=== PATIENT | male | born 1950 | race Caucasian/White ===

== ENCOUNTER → 2020-06-03 | Outpatient (CLI) | payer MEDICARE, OTHER | LOC: LAB FS 10:09 | PROVIDERS: ATTEND Orthopaedic Surgery | DX: Z20.828 Contact with and (suspected) exposure to other viral communicable diseases (principal) | CPT/HCPCS: 87635 ==

== ENCOUNTER 2020-10-22 09:16 | Emergency (ER) | payer MEDICARE, OTHER ==
[~2020-10-22] VITALS: Ht 182.8 cm; Wt 137.2 kg
[2020-10-22] MEDS ORDERED: CARV3.122 (10:18)
[2020-10-22] MEDS ORDERED: ISOS30TA3 (10:18)
[2020-10-22] MEDS ORDERED: LOSA100T57 (10:18)
[2020-10-22] MEDS ORDERED: SIMV80TA21 (10:18)
[2020-10-22] MEDS ORDERED: HYDR-3922 (10:18)
[2020-10-22] MEDS ORDERED: latanoprost (10:18)
[2020-10-22] MEDS ORDERED: SPIR25TA5 (10:18)
--- NOTE | 2020-10-22 10:18 | ED Cough/URI ---
General Chief Complaint: Respiratory Problems Stated Complaint: SOB Source: patient, spouse History of Present Illness Date Seen by Provider: Oct 22, 2020 Time Seen by Provider: 09:27 Initial Comments 70-year-old male presenting with his to the emergency department with complaints of shortness of breath and fatigue. He was diagnosed with COVID on October 21. His was diagnosed on Saturday and given Z pack and prednisone on 10/20. He states that he has had decreased appetite and decreased taste and smell. He has cough worse in the mornings when he first wakes up. He occasionally brings up some yellow white sputum. He has had low-grade fever. He was feeling rundown and tired overall. He has some mild shortness of breath. The cough is not keeping him up at night. He has not been prescribed any medication for his infection. He denies any nausea, vomiting, diarrhea. Allergies and Home Medications Allergies Coded Allergies: No Allergy Information Available (Unverified , 10/22/20) states a prostate medication, name ? Patient Home Medication List Home Medication List Reviewed: Yes Review of Systems Review of Systems Constitutional: No chills, No dizziness; fever (low grade), malaise EENTM: nose congestion Respiratory: cough; No hemoptysis; short of breath; No stridor, No wheezing Cardiovascular: No chest pain Gastrointestinal: No abdominal pain, No nausea, No vomiting Genitourinary: no symptoms reported Musculoskeletal: other (generalized body aches) Skin: no symptoms reported Psychiatric/Neurological: Denies Headache, Denies Numbness, Denies Paresthesia; Weakness (general weak and fatigued) Past Sesnmns-Pqyhbe-Gqhvdg Hx Past Med/Social Hx: Reviewed Nursing Past Med/Soc Hx Patient Social History Recent Foreign Travel: No Contact w/Someone Who Travel: No Past Medical History Respiratory: No Cardiac: Yes High Cholesterol, Hypertension Neurological: No Gastrointestinal: No Musculoskeletal: No Endocrine: Yes Diabetes, Non-Insulin dep (diet controlled) Physical Exam Vital Signs - First Documented 10/22/20 09:35 Temp 37.4 Pulse 80 Resp 20 B/P (MAP) 148/81 (103) Pulse Ox 95 O2 Delivery Room Air Capillary Refill : Height: '" Weight: lbs. oz. kg; BMI Method: General Appearance: WD/WN, no apparent distress, obese HEENT: PERRL/EOMI, pharynx normal Neck: non-tender, full range of motion, supple, normal inspection Respiratory: chest non-tender, lungs clear, normal breath sounds, no respiratory distress, no accessory muscle use Cardiovascular: normal peripheral pulses, regular rate, rhythm Gastrointestinal: normal bowel sounds, soft, no pulsatile mass Extremities: normal range of motion, non-tender, no pedal edema, normal capillary refill Neurologic/Psychiatric: alert, normal mood/affect, oriented x 3 Skin: normal color, warm/dry Progress/Results/Core Measures Suspected Sepsis SIRS Temperature: Pulse: Respiratory Rate: Blood Pressure / Mean: Results/Orders My Orders Orders - COLLEEN LAM MD Chest 1 View Ap/Pa Only (10/22/20 10:15) Vital Signs/I&O 10/22/20 10/22/20 10/22/20 09:35 10:05 12:25 Temp 37.4 36.6 Pulse 80 73 60 Resp 20 22 22 B/P (MAP) 148/81 (103) 140/76 (97) 134/73 (103) Pulse Ox 95 95 96 O2 Delivery Room Air Room Air Room Air Capillary Refill : Progress Note #1: Progress Note reassured patient that his vitals appears stable and he has good oxygen saturation on room air. With his mild symptoms will obtain a chest x-ray and provided he does not show signs of infiltrate or have worsening vital signs will continue with symptomatic treatment. If he does show an infiltrate and require antibiotics and steroids we can have those on. Will try to avoid steroids if possible since he is diet controlled diabetic. He is not feeling dizzy or lightheaded and not tachycardic to indicate that he would need IV fluids for hydration. Progress Note #2: Progress Note CXR clear of infiltrate or effusion. Treat with symptomatic care and encourage fluids and hydration. Mucinex or Coricidin BP if needed for cough. Humidifier at bedside Diagnostic Imaging Diagonstic Imaging: Xray Plain Films/CT/US/NM/MRI: chest Comments [facility] [place], [place] NAME: TANYA MEYERS [facility] REC#: [id number] PT STATUS: REG ER : 1950 PHYSICIAN: COLLEEN LAM MD ADMIT DATE: 10/22/20/ER FS Draft Date of Exam:10/22/20 CHEST 1 VIEW AP/PA ONLY INDICATION: Shortness breath and cough. Time of exam 10:42 a.m. COMPARISON: No prior studies are available for comparison. FINDINGS: The heart size is normal. The pulmonary vascularity is unremarkable. The lungs are clear. No infiltrate, effusion or pneumothorax is detected. IMPRESSION: No acute cardiopulmonary process is detected. Dictated on workstation # [id number] Dict: 10/22/20 1058 Trans: 10/22/20 1106 [facility] [id number] Interpreted by: MAGDA SMITH MD Electronically signed by: Departure Impression Primary Impression: COVID-19 virus infection Additional Impressions: Fatigue Qualified Codes: R53.83 - Other fatigue Viral syndrome Disposition: HOME, SELF-CARE Condition: Stable Departure-Patient Inst. Decision time for Depature: 12:09 Referrals: LUCIO NUNEZ APRN (PCP) Primary Care Physician [facility] (Family) Primary Care Physician Patient Instructions: Upper Respiratory Infection ED, Coronavirus Disease 2019 (COVID-19) ED, Coronavirus Disease 2019 (COVID-19) Overview Add. Discharge Instructions: stay well hydrated and get plenty of rest. For your cough consider Coricidin BP or Plain Mucinex over the counter if needed. Use a humidifier or vaporizer at the bedside to help with cough and congestion Check with clinic for continued concerns All discharge instructions reviewed with patient and/or family. Voiced understanding. COLLEEN LAM MD Oct 22, 2020 10:17
--- NOTE | 2020-10-22 11:06 | Diagnostic Imaging Report ---
INDICATION: Shortness breath and cough. Time of exam 10:42 a.m. COMPARISON: No prior studies are available for comparison. FINDINGS: The heart size is normal. The pulmonary vascularity is unremarkable. The lungs are clear. No infiltrate, effusion or pneumothorax is detected. IMPRESSION: No acute cardiopulmonary process is detected. Dictated by: Dictated on workstation # [id number]
[2020-10-22 12:25] VITALS: BP 134/73
== END 2020-10-22 12:25 | disposition home or self-care (01) ==
LOC: EDUNIT# 09:16 → ER FS 09:19
DX: U07.1 COVID-19 (principal); R53.83 Other fatigue; E66.9 Obesity, unspecified
CPT/HCPCS: 71045

== ENCOUNTER → 2020-12-28 | Outpatient (CLI) | payer MEDICARE, OTHER ==
[~2020-12-28] MED LIST: CARV3.122; HYDR-3922; ISOS30TA82; LOSA100T57; SIMV80TA21; SPIR25TA5; latanoprost
== END ==
LOC: LAB FS 10:21
PROVIDERS: ATTEND Nurse Practitioner Family
DX: Z01.812 Encounter for preprocedural laboratory examination (principal); Z20.822 Contact with and (suspected) exposure to COVID-19
CPT/HCPCS: 87635

== ENCOUNTER 2021-03-23 13:50 | Outpatient (RCR) | payer MEDICARE, OTHER | END 2021-04-13 | disposition home or self-care (01) | LOC: ONC 13:50 | PROVIDERS: ATTEND Radiology Radiation Oncology | DX: C61 Malignant neoplasm of prostate (principal) | CPT/HCPCS: 77290; 77300; 77301; 77334; 77336; 77338; 77385 ==

== ENCOUNTER 2021-05-18 09:10 | Outpatient (RCR) | payer MEDICARE, OTHER | END 2021-08-16 | disposition home or self-care (01) | LOC: ONC 09:10 | PROVIDERS: ATTEND Radiology Radiation Oncology | DX: C61 Malignant neoplasm of prostate (principal) | CPT/HCPCS: 84153; G0463; 99213 ==

== ENCOUNTER 2021-08-24 10:45 | Outpatient (RCR) | payer MEDICARE, OTHER | END 2021-10-20 | disposition home or self-care (01) | LOC: ONC 10:45 | PROVIDERS: ATTEND Radiology Radiation Oncology | DX: Z51.0 Encounter for antineoplastic radiation therapy (principal); C61 Malignant neoplasm of prostate | CPT/HCPCS: 77336 ==

== ENCOUNTER 2021-11-09 13:44 | Outpatient (RCR) | payer MEDICARE, OTHER | END 2021-11-20 | disposition home or self-care (01) | LOC: ONC 13:44 | PROVIDERS: ATTEND Radiology Radiation Oncology | DX: C61 Malignant neoplasm of prostate (principal) | CPT/HCPCS: 84153; G0463; 99213 ==

== ENCOUNTER 2021-12-20 09:03 | Emergency (ER) | payer MEDICARE, OTHER ==
[~2021-12-20] VITALS: Ht 182 cm; Wt 138.0 kg
--- NOTE | 2021-12-20 09:23 | ED General ---
General Stated Complaint: LT FLANK Source of Information: Patient History of Present Illness Date Seen by Provider: Dec 20, 2021 Time Seen by Provider: 09:07 Initial Comments 71-year-old male presenting with complaints of left flank pain for the last se veral days. He does have history of kidney stones and noticed blood in his urine overnight. When he saw the blood he remembered that he had similar pain with kidney stones in the past. He has some mild nausea when the pain is severe. He denies any fever, chills, diarrhea, vomiting, blood in his stool, trauma to his belly. He has no burning with urination. He has seen urology out of [place] in the past. He does also have a history of prostate cancer. He reports that he had called the clinic to try to follow-up with them but was advised to come to the emergency department. Patient states that he is not currently having pain and was just wanting to be evaluated to see if he did definitely have a stone or not. Timing/Duration: 3-4 Days Severity: Moderate Associated Systoms: No Chest Pain, No Cough, No Diaphoresis, No Fever/Chills, No Headaches, No Loss of Appetite, No Malaise; Nausea/Vomiting (Nausea when the pain is severe but no vomiting); No Rash, No Seizure, No Shortness of Air, No Syncope, No Weakness Allergies and Home Medications Allergies Coded Allergies: No Known Allergies (Verified Allergy, Unknown, 12/20/21) Patient Home Medication List Home Medication List Reviewed: Yes Carvedilol (Carvedilol) 3.125 Mg Tablet, (Reported) Entered as Reported by: CARLA XIE on 10/22/20 1018 Hydralazine HCl (Hydralazine HCl) 10 Mg Tablet, (Reported) Entered as Reported by: CARLA XIE on 10/22/20 1018 Hydrocodone/Acetaminophen (Hydrocodone-Acetamin 5-325 mg) 1 Each Tablet, 1 TAB PO Q6H PRN for PAIN-SEVERE (8-10) Prescribed by: COLLEEN LAM on 12/20/21 1025 Isosorbide Mononitrate (Isosorbide Mononitrate ER) 30 Mg Tab.er.24h, (Reported) Entered as Reported by: CARLA XIE on 10/22/20 1018 Losartan Potassium (Losartan Potassium) 100 Mg Tablet, (Reported) Entered as Reported by: CARLA XIE on 10/22/20 1018 Ondansetron (Ondansetron Odt) 4 Mg Tab.rapdis, 4 MG PO Q6H PRN for NAUSEA/VOMITING Prescribed by: COLLEEN LAM on 12/20/21 1024 Simvastatin (Simvastatin) 80 Mg Tablet, (Reported) Entered as Reported by: CARLA XIE on 10/22/20 1018 Spironolactone (Spironolactone) 25 Mg Tablet, (Reported) Entered as Reported by: CARLA XIE on 10/22/20 1018 [latanoprost] , (Reported) Entered as Reported by: CARLA XIE on 10/22/20 1018 Review of Systems Review of Systems Constitutional: No chills, No fever EENTM: no symptoms reported Respiratory: no symptoms reported Cardiovascular: no symptoms reported Gastrointestinal: see HPI Genitourinary: see HPI Musculoskeletal: no symptoms reported Skin: no symptoms reported Psychiatric/Neurological: No Symptoms Reported Past Cmeevsu-Oxcfsr-Prunkp Hx Seasonal Allergies Seasonal Allergies: No Past Medical History Surgery/Hospitalization HX: Kidney stones Surgeries: Yes (L TKR 2019, R TKR 2017, umbilical hernia) Joint Replacement Respiratory: No Cardiac: Yes High Cholesterol, Hypertension Neurological: No Genitourinary: Yes Prostate Problems Gastrointestinal: No Musculoskeletal: No Arthritis Endocrine: Yes Diabetes, Non-Insulin dep HEENT: Yes ("on eye drops") Glaucoma Cancer: Yes Prostate Psychosocial: No Integumentary: No Blood Disorders: No Physical Exam Vital Signs Vital Signs - First Documented 12/20/21 10:51 Temp 36.2 Pulse 70 Resp 18 B/P (MAP) 187/93 (124) Pulse Ox 95 O2 Delivery Room Air Capillary Refill : Height, Weight, BMI Height: '" Weight: lbs. oz. kg; 41.00 BMI Method: General Appearance: No Apparent Distress, WD/WN HEENT: PERRL/EOMI, Pharynx Normal Neck: Full Range of Motion, Supple Respiratory: Chest Non Tender, Lungs Clear, No Respiratory Distress Cardiovascular: Regular Rate, Rhythm, Normal Peripheral Pulses Gastrointestinal: Normal Bowel Sounds, No Pulsatile Mass, Non Tender, Soft Rectal: Deferred Back: No CVA Tenderness Extremity: Normal Capillary Refill, Normal Inspection, Pedal Edema (Trace to 1+ pedal edema bilateral lower extremity) Neurologic/Psychiatric: Alert, Oriented x3 Skin: Normal Color, Warm/Dry Progress/Results/Core Measures Suspected Sepsis SIRS Temperature: Pulse: Respiratory Rate: Laboratory Tests 12/20/21 09:28: White Blood Count 7.6 Blood Pressure / Mean: Laboratory Tests 12/20/21 09:28: Creatinine 1.09, Platelet Count 160, Total Bilirubin 0.8 Results/Orders Lab Results Laboratory Tests Test 12/20/21 09:08 12/20/21 09:28 Range/Units Urine Color YELLOW Urine Clarity CLEAR Urine pH 6.5 5-9 Urine Specific [place] 1.020 1.016-1.022 Urine Protein NEGATIVE NEGATIVE Urine Glucose (UA) NEGATIVE NEGATIVE Urine Ketones NEGATIVE NEGATIVE Urine Nitrite NEGATIVE NEGATIVE Urine Bilirubin NEGATIVE NEGATIVE Urine Urobilinogen 0.2 < = 1.0 MG/DL Urine Leukocyte Esterase NEGATIVE NEGATIVE Urine RBC (Auto) 3+ H NEGATIVE Urine RBC 2-5 H /HPF Urine WBC 0-2 /HPF Urine Squamous Epithelial Cells RARE /HPF Urine Crystals NONE /LPF Urine Bacteria NEGATIVE /HPF Urine Casts NONE /LPF Urine Mucus NEGATIVE /LPF Urine Culture Indicated NO White Blood Count 7.6 4.3-11.0 10^3/uL Red Blood Count 4.63 4.30-5.52 10^6/uL Hemoglobin 14.3 13.3-17.7 g/dL Hematocrit 43 40-54 % Mean Corpuscular Volume 92 80-99 fL Mean Corpuscular Hemoglobin 31 25-34 pg Mean Corpuscular Hemoglobin Concent 34 32-36 g/dL Red Cell Distribution Width 13.1 10.0-14.5 % Platelet Count 160 130-400 10^3/uL Mean Platelet Volume 9.2 9.0-12.2 fL Immature Granulocyte % (Auto) 0 % Neutrophils (%) (Auto) 71 42-75 % Lymphocytes (%) (Auto) 12 12-44 % Monocytes (%) (Auto) 12 0-12 % Eosinophils (%) (Auto) 5 0-10 % Basophils (%) (Auto) 0 0-10 % Neutrophils # (Auto) 5.4 1.8-7.8 10^3/uL Lymphocytes # (Auto) 0.9 L 1.0-4.0 10^3/uL Monocytes # (Auto) 0.9 0.0-1.0 10^3/uL Eosinophils # (Auto) 0.4 H 0.0-0.3 10^3/uL Basophils # (Auto) 0.0 0.0-0.1 10^3/uL Immature Granulocyte # (Auto) 0.0 0.0-0.1 10^3/uL Sodium Level 138 135-145 MMOL/L Potassium Level 4.2 3.6-5.0 MMOL/L Chloride Level 101 98-107 MMOL/L Carbon Dioxide Level 27 21-32 MMOL/L Anion Gap 10 5-14 MMOL/L Blood Urea Nitrogen 16 7-18 MG/DL Creatinine 1.09 0.60-1.30 MG/DL Estimat Glomerular Filtration Rate 73 BUN/Creatinine Ratio 15 Glucose Level 145 H 70-105 MG/DL Calcium Level 8.9 8.5-10.1 MG/DL Corrected Calcium 8.9 8.5-10.1 MG/DL Total Bilirubin 0.8 0.1-1.0 MG/DL Aspartate Amino Transf (AST/SGOT) 17 5-34 U/L Alanine Aminotransferase (ALT/SGPT) 13 0-55 U/L Alkaline Phosphatase 112 40-136 U/L Total Protein 7.0 6.4-8.2 GM/DL Albumin 4.0 3.2-4.5 GM/DL Lipase 19 8-78 U/L My Orders Orders - COLLEEN LAM MD Comprehensive Metabolic Panel (12/20/21 09:13) Lipase (12/20/21 09:13) Ua Culture If Indicated (12/20/21 09:13) Ed Iv/Invasive Line Start (12/20/21 09:13) Cbc With Automated Diff (12/20/21 09:13) Ct Abd/Pelvis Wo(Kidney Stone) (12/20/21 09:21) Strain Urine (12/20/21 10:25) Vital Signs/I&O 12/20/21 12/20/21 12/20/21 10:51 10:56 10:58 Temp 36.2 36.2 Pulse 70 70 82 Resp 18 18 16 B/P (MAP) 187/93 (124) 187/93 135/70 Pulse Ox 95 95 82 O2 Delivery Room Air Room Air Room Air Capillary Refill : Progress Note #1: Progress Note Send labs as well as urinalysis. Ordered CT scan of the abdomen pelvis without contrast to evaluate for kidney stone. Patient refused medicine for pain at this point since he reports he is not having pain currently. Progress Note #2: Progress Note Labs appear stable without acute significant normality to account for his symptoms. His CT scan did show a 5 mm kidney stone on the left in the distal ureter. He did not appear to have UTI on his urinalysis. Counseled on results and findings. Plan follow-up with primary and/or urology if needed. Prescribed a few hydrocodone for severe pain. Diagnostic Imaging Diagonstic Imaging: CT Plain Films/CT/US/NM/MRI: abdomen, pelvis Comments NAME: TANYA MEYERS [facility] REC#: [id number] PT STATUS: REG ER : 1950 PHYSICIAN: COLLEEN LAM MD ADMIT DATE: 12/20/21/ER FS Draft Date of Exam:12/20/21 CT ABD/PELVIS WO(KIDNEY STONE) PROCEDURE: CT urinary tract, rule out kidney stone. TECHNIQUE: Multiple contiguous axial images were obtained through the abdomen and pelvis without the use of intravenous contrast. Auto Exposure Controls were utilized during the CT exam to meet ALARA standards for radiation dose reduction. INDICATION: Left-sided flank pain. Hematuria. COMPARISON: None. FINDINGS: The heart is unremarkable. The lung bases are clear. Obstructing calculus is seen in the distal left ureter measuring 0.5 cm. There is mild to moderate left-sided hydroureteronephrosis. Additional nonobstructing calculi are seen bilaterally measuring up to 1.1 cm on the left and 0.6 cm on the right. Bilateral prominent cortical cysts are seen in the kidneys. The largest in the left kidney measures 10.1 x 8.6 cm and the largest on the right measures 5.7 x 5.2 cm. The urinary bladder is nondistended. The liver, spleen, pancreas, and adrenal glands have a normal appearance. There is no pathologically enlarged mesenteric or retroperitoneal adenopathy. The bowel loops are nondilated. The appendix is visualized in the right lower quadrant and has a normal appearance. Diverticuli are seen in the descending sigmoid colon. There is no free fluid or free air. No acute osseous abnormalities. There is calcified aortic and iliac atherosclerotic plaque without aneurysm. There is no free air, loculated collection, or adenopathy in the pelvis. IMPRESSION: 1. Obstructing calculus in the distal left ureter measuring 0.5 cm with mild to moderate left-sided hydroureteronephrosis. 2. Additional nonobstructing calculi are seen bilaterally. Dictated on workstation # [id number] Dict: 12/20/21 0956 Trans: 12/20/21 1007 [facility]B [id number] Interpreted by: JAROD KATZ DO Electronically signed by: Reviewed: Reviewed by Me Departure Impression Primary Impression: Kidney stone on left side Additional Impressions: Calculus of distal left ureter Renal colic on left side Disposition: HOME, SELF-CARE Condition: Stable Departure-Patient Inst. Decision time for Depature: 10:25 Referrals: LUCIO NUNEZ APRN (PCP) Primary Care Physician [facility] (Family) Primary Care Physician Patient Instructions: Flank Pain ED, Kidney Stone, Adult ED, Kidney Stone Diet, How to Strain Your Urine Add. Discharge Instructions: Stay well-hydrated and drink plenty of water. Strain your urine to see when you pass the kidney stone. Use the pain medicine for severe pain. If you have uncontrolled pain, uncontrolled vomiting, fever over 101 Fahrenheit then seek medical care or return for further evaluation If your symptoms are not improved or are worsening over the next 5 to 10 days then follow-up with urology as they may need to help remove the kidney stone. Scripts Ondansetron (Ondansetron Odt) 4 Mg Tab.rapdis 4 MG PO Q6H PRN for NAUSEA/VOMITING for 3 Days, #12 TAB 0 Refills Prov: COLLEEN LAM MD 12/20/21 Hydrocodone/Acetaminophen (Hydrocodone-Acetamin 5-325 mg) 1 Each Tablet 1 TAB PO Q6H PRN for PAIN-SEVERE (8-10) for 5 Days, #20 TAB 0 Refills Prov: COLLEEN LAM MD 12/20/21 Work/School Note: Work Release Form Date Seen in the Emergency Department: Dec 20, 2021 Return to Work: Dec 20, 2021 Restrictions: No Restrictions COLLEEN LAM MD Dec 20, 2021 09:23
[2021-12-20 09:30] LABS: BILIRUBIN,URINE NEGATIVE (NEGATIVE); CLARITY,URINE CLEAR; COLOR,URINE YELLOW; GLUCOSE, URINE (UA) NEGATIVE (NEGATIVE); KETONES,URINE NEGATIVE (NEGATIVE); LEUKOCYTE ESTERASE ,URINE NEGATIVE (NEGATIVE); NITRITE,URINE NEGATIVE (NEGATIVE); PH,URINE 6.5 (5-9); PROTEIN,URINE NEGATIVE (NEGATIVE)
[2021-12-20 09:36] LABS: BASOPHILS % (AUTO) 0 % (0-10); EOSINOPHILS # (AUTO) 0.4 10^3/uL (0.0-0.3); EOSINOPHILS % (AUTO) 5 % (0-10); HEMATOCRIT 43 % (40-54); HEMOGLOBIN 14.3 g/dL (13.3-17.7); LYMPHOCYTES # (AUTO) 0.9 10^3/uL (1.0-4.0); LYMPHOCYTES % (AUTO) 12 % (12-44); MEAN CORPUSCULAR HEMOGLOBIN 31 pg (25-34); MEAN CORPUSCULAR HGB CONC 34 g/dL (32-36); MEAN CORPUSCULAR VOLUME 92 fL (80-99); MEAN PLATELET VOLUME 9.2 fL (9.0-12.2); MONOCYTES # (AUTO) 0.9 10^3/uL (0.0-1.0); MONOCYTES % (AUTO) 12 % (0-12); NEUTROPHILS # (AUTO) 5.4 10^3/uL (1.8-7.8); NEUTROPHILS % (AUTO) 71 % (42-75); PLATELET COUNT 160 10^3/uL (130-400); WHITE BLOOD COUNT 7.6 10^3/uL (4.3-11.0)
[2021-12-20 09:48] LABS: BACTERIA,URINE NEGATIVE /HPF; SQUAMOUS EPITHELIAL CELL,UR RARE /HPF; WBC,URINE 0-2 /HPF
--- NOTE | 2021-12-20 10:08 | Diagnostic Imaging Report ---
PROCEDURE: CT urinary tract, rule out kidney stone. TECHNIQUE: Multiple contiguous axial images were obtained through the abdomen and pelvis without the use of intravenous contrast. Auto Exposure Controls were utilized during the CT exam to meet ALARA standards for radiation dose reduction. INDICATION: Left-sided flank pain. Hematuria. COMPARISON: None. FINDINGS: The heart is unremarkable. The lung bases are clear. Obstructing calculus is seen in the distal left ureter measuring 0.5 cm. There is mild to moderate left-sided hydroureteronephrosis. Additional nonobstructing calculi are seen bilaterally measuring up to 1.1 cm on the left and 0.6 cm on the right. Bilateral prominent cortical cysts are seen in the kidneys. The largest in the left kidney measures 10.1 x 8.6 cm and the largest on the right measures 5.7 x 5.2 cm. The urinary bladder is nondistended. The liver, spleen, pancreas, and adrenal glands have a normal appearance. There is no pathologically enlarged mesenteric or retroperitoneal adenopathy. The bowel loops are nondilated. The appendix is visualized in the right lower quadrant and has a normal appearance. Diverticuli are seen in the descending sigmoid colon. There is no free fluid or free air. No acute osseous abnormalities. There is calcified aortic and iliac atherosclerotic plaque without aneurysm. There is no free air, loculated collection, or adenopathy in the pelvis. IMPRESSION: 1. Obstructing calculus in the distal left ureter measuring 0.5 cm with mild to moderate left-sided hydroureteronephrosis. 2. Additional nonobstructing calculi are seen bilaterally. Dictated by: Dictated on workstation # [id number]
[2021-12-20 10:22] LABS: BILIRUBIN,TOTAL 0.8 MG/DL (0.1-1.0); CALCIUM 8.9 MG/DL (8.5-10.1); CREATININE SERUM 1.09 MG/DL (0.60-1.30); POTASSIUM 4.2 MMOL/L (3.6-5.0)
[2021-12-20] MEDS ORDERED: ONDA4TAB11 PO (10:24)
[2021-12-20] MEDS ORDERED: ACHD5005 PO (10:24)
[2021-12-20 10:58] VITALS: BP 135/70
== END 2021-12-20 10:45 | disposition home or self-care (01) ==
LOC: EDUNIT# 09:03 → ER FS 09:05
DX: N13.2 Hydronephrosis with renal and ureteral calculous obstruction (principal)
CPT/HCPCS: 36415; 74176; 80053; 81000; 83690; 85025

== ENCOUNTER 2021-12-25 14:56 | Outpatient (CLI) | payer MEDICARE, OTHER ==
[~2021-12-25] VITALS: Ht 182.9 cm; Wt 138.6 kg
[~2021-12-25 14:56] MED LIST changes: -ASPI-999 PO; -FURO40TA4 PO; -KETO10TA PO; -NITR-65 PO; -PHEN-640 PO; -TMSL.4C PO
[2021-12-25] MEDS ORDERED: FURO40TA4 PO (16:20)
[2021-12-25] MEDS ORDERED: ASPI-999 PO (16:20)
[2021-12-26] MEDS ORDERED: KETO10TA PO (13:29)
[2021-12-26] MEDS ORDERED: PHEN-640 PO (13:29)
[2021-12-26] MEDS ORDERED: TMSL.4C PO (13:29)
[2021-12-26] MEDS ORDERED: NITR-65 PO (13:29)
== END 2021-12-25 16:33 | disposition home or self-care (01) ==
LOC: PREOP 14:56
PROVIDERS: ATTEND Urology
DX: Z01.818 Encounter for other preprocedural examination (principal)

== ENCOUNTER → 2021-12-25 | Outpatient (CLI) | payer MEDICARE, OTHER ==
[~2021-12-25] MED LIST changes: +ACHD5005 PO; +ASPI-999 PO; +FURO40TA4 PO; +KETO10TA PO; +NITR-65 PO; +ONDA4TAB11 PO; +PHEN-640 PO; +TMSL.4C PO
--- NOTE | 2021-12-25 14:15 | Diagnostic Imaging Report ---
INDICATION: Nephrolithiasis KUB 1:45 PM There is 6 mm calculus projecting over the inferior pole of the right kidney. There is a 13 mm stone at the left ureteropelvic junction. IMPRESSION: Bilateral nephrolithiasis Dictated by: Dictated on workstation # [id number]
== END ==
LOC: RAD 13:30
PROVIDERS: ATTEND Urology
DX: N20.2 Calculus of kidney with calculus of ureter (principal)
CPT/HCPCS: 74018

== ENCOUNTER 2021-12-26 07:47 | Day surgery (SDC) | payer MEDICARE, OTHER ==
[2021-12-26] VITALS (10 sets, daily range): BP systolic 140–190; BP diastolic 89–108
[~2021-12-26] VITALS: Ht 182.9 cm; Wt 138.6 kg
[~2021-12-26 07:47] MED LIST changes: +ASPI-999 PO; +FURO40TA4 PO
--- NOTE | 2021-12-26 08:18 | Progress Note-Pre Operative ---
Pre-Operative Progress Note H&P Reviewed The H&P was reviewed, patient examined and no changes noted. Date Seen by Provider: Dec 26, 2021 Time Seen by Provider: 08:18 Date H&P Reviewed: Dec 26, 2021 Time H&P Reviewed: 08:18 Pre-Operative Diagnosis: LT DISTAL URETERAL AND BILATERAL RENAL STONES BRETT REED MD Dec 26, 2021 08:18
--- NOTE | 2021-12-26 08:19 | Progress Note-Post Operative ---
Post-Operative Progess Note Surgeon (s)/Coil Maker (s) Surgeon BRETT REED MD Coil Maker: NONE Pre-Operative Diagnosis LT DISTAL URETERAL AND BILATERAL RENAL STONES Post-Operative Diagnosis SAME Procedure & Operative Findings Date of Procedure 12/26/21 Procedure Performed/Findings CYSTOSCOPY, ATTEMPTED LT URETEROSCOPY, AND LT ESWL Anesthesia Type GENERAL Estimated Blood Loss Estimated blood loss (mL): NONE Specimens/Packing Specimens Removed NONE Packing: NONE BRETT REED MD Dec 26, 2021 08:19
--- NOTE | 2021-12-26 08:20 | Discharge Inst-Urology ---
Discharge Inst-Urology Reconcile Patient Problems Problems Reviewed?: Yes Final Diagnosis LT DISTAL URETERAL AND BILATERAL RENAL STONES Patient Instructions/Follow Up Plan/Assessment/Instructions Please make appointment to been seen in office Monday 01/08, KUB prior to it. KUB on way home Post ESWL instructions Stay off ASA Increase oral fluids for 48 hours and then as needed. Diet and Activity as tolerated. If questions or concerns contact your physician Or seek help at emergency department. BRETT REED MD Dec 26, 2021 08:20
[2021-12-26] MEDS ORDERED: cefTRIAXone 1 GM PRE-MIX 50 ML IV ONE (08:45)
--- NOTE | 2021-12-26 08:59 | Diagnostic Imaging Report ---
CLINICAL INDICATION: Preop left ESWL. EXAM: X-ray of the abdomen supine views. COMPARISON: X-ray of the abdomen dated 12/25/2021. CT scan of the abdomen and pelvis without contrast dated 12/20/2021. FINDINGS: Again noted 7 mm stone overlying the inferior right renal shadow region and 13 mm stone overlying the left abdominal region suspected to represent a stone overlying the left renal shadow. There is a slightly obscured roughly 5 mm calcification in the left low pelvis region which may represent a stone in the distal left ureter seen on comparison CT scan of the abdomen and pelvis. Prostate treatment metallic objects are noted overlying the low pelvis region. There is no intestinal obstruction. There are degenerative spurs involving the spine. IMPRESSION: Bilateral renal stones and likely stone in distal left ureter, as described above. Dictated by: Dictated on workstation # [id number]
[2021-12-26] MEDS: LACTATED RINGERS 1,000 ML IV PRN ×2 (09:29→12:02)
[2021-12-26] MEDS ORDERED: fentaNYL INJ 100 MCG/2 ML AMP ONE (10:49)
[2021-12-26] MEDS ORDERED: LIDOCAINE PF 2% 5 ML (XYLOCAINE) VIAL ONE (11:45)
[2021-12-26] MEDS ORDERED: proPOfol 200 MG/20 ML (DIPRIVAN) VIAL IV ONE (11:45)
[2021-12-26] MEDS ORDERED: SEVOFLURANE (ULTANE) 15 ML INHAL SOLN ONE (11:45)
[2021-12-26] MEDS ORDERED: ONDANSETRON 4 MG/2 ML (SDV) Z0FRAN ONE (11:45)
[2021-12-26] MEDS ORDERED: KETOROLAC 30 MG/ML VIAL ONE (11:52)
[2021-12-26] MEDS ORDERED: FUROSEMIDE 40 MG/4 ML INJ (LASIX) ONE (11:52)
[2021-12-26] MEDS ORDERED: PHENYLEPHRINE 100 MCG/ML 10 ML (ANESTHESIA) SYR ONE (11:55)
[2021-12-26] MEDS ORDERED: HYDROmorphone 2 MG/ML VIAL (DILAUDID) IV ONE (12:15)
[2021-12-26] MEDS ORDERED: ONDANSETRON 4 MG/2 ML (SDV) Z0FRAN IVP PRN (12:15)
[2021-12-26] MEDS ORDERED: PHEN-640 PO ×2 (13:29)
[2021-12-26] MEDS ORDERED: NITR-65 PO ×2 (13:29)
[2021-12-26] MEDS ORDERED: KETO10TA PO ×2 (13:29)
[2021-12-26] MEDS ORDERED: TMSL.4C PO ×2 (13:29)
[2021-12-26] MEDS ORDERED: PHENAZOPYRIDINE 100 MG (PYRIDIUM) TABLET PO NR (13:45)
--- NOTE | 2021-12-26 13:55 | Anesthesia-General Post-Op ---
General Patient Condition Mental Status/LOC: Same as Preop Cardiovascular: Satisfactory Nausea/Vomiting: Absent Respiratory: Satisfactory Pain: Controlled Complications: Absent Post Op Complications Complications None Follow Up Care/Instructions Patient Instructions None needed. Anesthesia/Patient Condition Patient Condition Patient is doing well, no complaints, stable vital signs, no apparent adverse anesthesia problems. No complications reported per nursing. D/C home per [facility] Criteria: Yes MAYNOR CARLIN CRNA Dec 26, 2021 13:55
--- NOTE | 2021-12-26 15:15 | Diagnostic Imaging Report ---
INDICATION: Status post ESWL. TIME OF EXAM: 2:59 PM CORRELATION is made with prior radiograph earlier the same day. Calcific densities previously described overlying the lower pole renal shadows bilaterally are again noted. There are several small calcific densities in the left hemipelvis which could be in the distribution of the distal left ureter. Bowel gas pattern is unremarkable. There is no free air. IMPRESSION: Bilateral urinary tract calculi, as described. Dictated by: Dictated on workstation # [id number]
--- NOTE | 2021-12-26 17:37 | OPERATIVE REPORT ---
DATE OF SERVICE: 12/26/2021 PREOPERATIVE DIAGNOSIS: Left distal ureteral and bilateral renal stones. POSTOPERATIVE DIAGNOSIS: Left distal ureteral and bilateral renal stones. OPERATIONS PERFORMED: Cystoscopy, attempted left ureteroscopy and left ESWL. SURGEON: Yousuf Reed MD. ANESTHESIA: General. COMPLICATIONS: None. DESCRIPTION OF PROCEDURE: Under satisfactory general anesthesia, the patient in lithotomy position, genitalia were prepped and draped in the usual sterile fashion. Cystoscope was introduced under vision. The anterior urethra was normal. The prostate showed enlargement with bladder neck obstruction, trabeculation with ureteric orifices displaced upward and laterally. I could not satisfactorily dilated the left ureteral orifice to pass the semirigid ureteroscope, so I terminated the procedure, emptied the bladder, moved the patient to the ESWL table supine. The left distal ureteral stone was localized. Shocks were delivered at a kV of 6, 2500 shocks completely fragmented the stone that was hardly visualized. The patient received 40 mg of Lasix and 30 mg of Toradol IV at the end of the procedure. He tolerated the procedure and anesthesia well and was sent to recovery room in a stable condition. Job ID: [id number] DocumentID: [id number] Dictated Date: 12/26/2021 12:01:40 Radio Station Engineer Date: 12/26/2021 17:37:20 Dictated By: YOUSUF REED MD
== END 2021-12-26 15:05 | disposition home or self-care (01) ==
LOC: SDC 07:47
PROVIDERS: ATTEND Urology
DX: N20.2 Calculus of kidney with calculus of ureter (principal); N40.0 Benign prostatic hyperplasia without lower urinary tract symptoms; N32.0 Bladder-neck obstruction; N32.89 Other specified disorders of bladder; E66.01 Morbid (severe) obesity due to excess calories; R03.0 Elevated blood-pressure reading, without diagnosis of hypertension; I25.10 Atherosclerotic heart disease of native coronary artery without angina pectoris; Z79.899 Other long term (current) drug therapy; Z87.891 Personal history of nicotine dependence; Z68.41 Body mass index [BMI] 40.0-44.9, adult
CPT/HCPCS: 74018; 76000; 82947; 87081

== ENCOUNTER → 2022-01-08 | Outpatient (CLI) | payer MEDICARE, OTHER ==
[~2022-01-08] MED LIST changes: +KETO10TA PO; +NITR-65 PO; +PHEN-640 PO; +TMSL.4C PO
--- NOTE | 2022-01-08 18:38 | Diagnostic Imaging Report ---
ABDOMEN/KUB 1VIEW INDICATION: Ureteral stone. COMPARISON: 12/26/2021. TECHNIQUE: AP view of the abdomen. FINDINGS: No change in the position of the 12 mm stone in the left kidney and the 6 mm stone in the lower pole of the right kidney. Previously noted densities in the lower left hemipelvis have resolved. Nonobstructive bowel gas pattern. IMPRESSION: 1. Resolution of the left hemipelvis calcifications which may have been in the distal left ureter. 2. Unchanged bilateral renal calculi. Dictated by: Dictated on workstation # [id number]
== END ==
LOC: RAD 14:22
PROVIDERS: ATTEND Urology
DX: N20.0 Calculus of kidney (principal)
CPT/HCPCS: 74018

== ENCOUNTER 2022-04-27 12:44 | Outpatient (RCR) | payer MEDICARE, OTHER | END 2022-05-20 | disposition home or self-care (01) | LOC: ONC 12:44 | PROVIDERS: ATTEND Radiology Radiation Oncology | DX: C61 Malignant neoplasm of prostate (principal) | CPT/HCPCS: 36415; 84153 ==

== ENCOUNTER 2022-04-28 09:03 | Emergency (ER) | payer MEDICARE, OTHER ==
[~2022-04-28] VITALS: Ht 182.9 cm; Wt 136.1 kg
[2022-04-28 09:14] VITALS: BP 143/74
--- NOTE | 2022-04-28 09:39 | ED Cough/URI ---
General Chief Complaint: Fever-Adult/Adol Stated Complaint: FEVER,SORE THROAT, COUGH Nursing Triage Note: Patient reports fever, sore throat, and cough since yesterday. Source: patient History of Present Illness Date Seen by Provider: Apr 28, 2022 Time Seen by Provider: 09:09 Initial Comments 71-year-old male presenting with complaints of cough and sore throat that started yesterday. Last night he had fever up to 101 Fahrenheit. He continued to have congestion and cough this morning so he came to be evaluated for possible COVID infection. He denies any known ill contacts. He has not currently running fever and does not have shortness of breath, nausea, vomiting, abdominal pain. He has some mild nasal congestion and drainage with some erythema to his throat but no exudate. Timing/Duration: yesterday Severity/Quality: mild, dry cough Prior Episodes/Possible Cause: no prior episodes Modifying Factors: Worse With Coughing Associated Symptoms: cough, fever/chills (101F last night), nasal congestion, nasal drainage, sore throat Allergies and Home Medications Allergies Coded Allergies: No Known Allergies (Verified Allergy, Unknown, 12/25/21) Patient Home Medication List Home Medication List Reviewed: Yes Carvedilol (Carvedilol) 3.125 Mg Tablet, (Reported) Entered as Reported by: CARLA XIE on 10/22/20 1018 Furosemide (Furosemide) 40 Mg Tablet, 40 MG PO DAILY, (Reported) Entered as Reported by: JOHANNE DOWNS on 12/25/21 1620 Hydralazine HCl (Hydralazine HCl) 10 Mg Tablet, (Reported) Entered as Reported by: CARLA XIE on 10/22/20 1018 Hydrocodone/Acetaminophen (Hydrocodone-Acetamin 5-325 mg) 1 Each Tablet, 1 TAB PO Q6H PRN for PAIN-SEVERE (8-10) Prescribed by: COLLEEN LAM on 12/20/21 1025 Isosorbide Mononitrate (Isosorbide Mononitrate ER) 30 Mg Tab.er.24h, (Reported) Entered as Reported by: CARLA XIE on 10/22/20 1018 Ketorolac Tromethamine (Ketorolac Tromethamine) 10 Mg Tablet, 10 MG PO Q6H Prescribed by: SUNSHINE SHARP on 12/26/21 1329 Losartan Potassium (Losartan Potassium) 100 Mg Tablet, (Reported) Entered as Reported by: CARLA XIE on 10/22/20 1018 Nitrofurantoin Monohyd/M-Cryst (Macrobid 100 mg Capsule) 100 Mg Capsule, 1 TAB PO BID WITH MEALS Prescribed by: SUNSHINE SHARP on 12/26/21 1329 Ondansetron (Ondansetron Odt) 4 Mg Tab.rapdis, 4 MG PO Q6H PRN for NAUSEA/VOMITING Prescribed by: COLLEEN LAM on 12/20/21 1024 Phenazopyridine HCl (Pyridium) 200 Mg Tablet, 1 TAB PO TID Prescribed by: SUNSHINE SHARP on 12/26/21 1329 Simvastatin (Simvastatin) 80 Mg Tablet, (Reported) Entered as Reported by: CARAL XIE on 10/22/20 1018 Spironolactone (Spironolactone) 25 Mg Tablet, (Reported) Entered as Reported by: CARLA XIE on 10/22/20 1018 Tamsulosin HCl (Flomax) 0.4 Mg Cap, 0.4 MG PO DAILY Prescribed by: SUNSHINE SHARP on 12/26/21 1329 [latanoprost] , (Reported) Entered as Reported by: CARLA XIE on 10/22/20 1018 Review of Systems Review of Systems Constitutional: see HPI; No chills; fever EENTM: nose congestion, throat pain; No ear discharge, No hearing loss, No ear pain, No blurred vision Respiratory: cough; No phlegm, No stridor, No wheezing Cardiovascular: no symptoms reported Gastrointestinal: no symptoms reported Genitourinary: no symptoms reported Musculoskeletal: no symptoms reported Skin: no symptoms reported Psychiatric/Neurological: No Symptoms Reported Hematologic/Lymphatic: No Symptoms Reported Past Qhgejgg-Kepxoy-Wpfksl Hx Patient Social History Tobacco Use?: No Substance use?: No Alcohol Use?: No Pt feels they are or have been: No Immunizations Up To Date First/Initial COVID19 Vaccinat: 01/27/2021 Second COVID19 Vaccination Alan: 02/2021 Third COVID19 Vaccination Date: 08/18/21 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: Be Seasonal Allergies Seasonal Allergies: No Past Medical History Surgery/Hospitalization HX: DM,HTN Surgeries: Yes (L TKR 2019, R TKR 2017, umbilical hernia) Joint Replacement Respiratory: No Cardiac: Yes High Cholesterol, Hypertension Neurological: No Genitourinary: Yes Prostate Problems, Kidney Stones Gastrointestinal: No Musculoskeletal: No Arthritis Endocrine: Yes (DIET CONTROLLED) Diabetes, Non-Insulin dep HEENT: Yes ("on eye drops") Glaucoma Cancer: Yes Prostate What Type of Treatment Did You: Radiation Psychosocial: No Integumentary: No Blood Disorders: No Physical Exam Vital Signs - First Documented 04/28/22 09:14 Temp 36.2 Pulse 70 Resp 20 B/P (MAP) 143/74 (97) Pulse Ox 95 O2 Delivery Room Air Capillary Refill : Less Than 3 Seconds Height: '" Weight: lbs. oz. kg; 40.00 BMI Method: General Appearance: WD/WN, no apparent distress HEENT: PERRL/EOMI, normal ENT inspection, pharyngeal erythema; No tonsillar exudate Neck: non-tender, full range of motion, supple, normal inspection Respiratory: chest non-tender, lungs clear, normal breath sounds, no respiratory distress, no accessory muscle use Cardiovascular: normal peripheral pulses, regular rate, rhythm Gastrointestinal: normal bowel sounds, non tender, soft, no pulsatile mass Extremities: normal range of motion, non-tender, no calf tenderness, normal capillary refill Neurologic/Psychiatric: data support analyst II-XII nml as tested, no motor/sensory deficits, alert, normal mood/affect, oriented x 3 Skin: normal color, warm/dry Progress/Results/Core Measures Suspected Sepsis SIRS Temperature: Pulse: 70 Respiratory Rate: 20 Blood Pressure 143 /74 Mean: 97 Results/Orders Lab Results Laboratory Tests Test 04/28/22 09:17 Range/Units Influenza Type A (RT-PCR) Not Detected Not Detecte Influenza Type B (RT-PCR) Not Detected Not Detecte SARS-CoV-2 RNA (RT-PCR) Detected H Not Detecte My Orders Orders - COLLEEN LAM MD Chest 1 View Ap/Pa Only (04/28/22 09:21) Covid 19 Inhouse Test (04/28/22 09:21) Influenza A And B By Pcr (04/28/22 09:21) Isolation Central Supply Req (04/28/22 09:21) Vital Signs/I&O 04/28/22 09:14 Temp 36.2 Pulse 70 Resp 20 B/P (MAP) 143/74 (97) Pulse Ox 95 O2 Delivery Room Air Capillary Refill : Less Than 3 Seconds Blood Pressure Mean: 97 Progress Note #1: Progress Note Order chest x-ray for his cough and flu and COVID swab to check for his fever and nasal congestion. Progress Note #2: Progress Note Chest x-ray does not show any acute infiltrate or process. His influenza swab was negative. His COVID swab did come back positive. With mild symptoms will encourage patient to push fluids and rest. Isolate and wear a mask. Since he does have a history of hypertension and is over 65 years of age I did offer Paxlovid as an option of treatment. However, with his mild symptoms patient and I both agreed that he could treat his symptoms and defer Paxlovid. Offered to give him an information sheet about the medicine but he declined. Diagnostic Imaging Diagonstic Imaging: Xray Plain Films/CT/US/NM/MRI: chest Comments [facility], [place] NAME: [facility] REC#: [id number] PT STATUS: REG ER : 1950 PHYSICIAN: COLLEEN LAM MD ADMIT DATE: 04/28/22/ER FS Signed Date of Exam:04/28/22 CHEST 1 VIEW AP/PA ONLY CHEST 1 VIEW AP/PA ONLY Indication: Cough and fever Comparison: 10/22/2020 Findings: No focal airspace disease in the visualized lungs. Please note that the posterior lower lobes are poorly evaluated by portable radiography. No pleural effusion or pneumothorax. Normal cardiomediastinal silhouette. Impression: 1. No acute cardiopulmonary process by portable radiography. Dictated by: Dictated on workstation # [id number] Dict: 04/28/22934 Trans: 04/28/2236 [facility] [id number] Interpreted by: REJI QUIROZ MD Electronically signed by: REJI QUIROZ MD 04/28/22935 Reviewed: Reviewed by Me Departure Impression Primary Impression: COVID-19 virus infection Additional Impressions: Sore throat Upper respiratory infection with cough and congestion Disposition: 01 HOME, SELF-CARE Condition: Stable Departure-Patient Inst. Decision time for Depature: 10:03 Referrals: NO,LOCAL PHYSICIAN (PCP) Primary Care Physician LUCIO NUNEZ APRN (Family) Primary Care Physician Patient Instructions: COVID-19 After You Have Been Vaccinated, Sore Throat, Adult ED, Upper Respiratory Infection ED Add. Discharge Instructions: Stay well-hydrated and get plenty rest. Use plain Mucinex [id number] to help with congestion and cough. You need to wear a mask through the next 5 days while you are having symptoms and quarantine and isolate from other people. After the 5 days he could be around other people but you should continue to wear a mask. Acetaminophen or ibuprofen as needed for fever and body aches All discharge instructions reviewed with patient and/or family. Voiced understanding. COLLEEN LAM MD Apr 28, 2022 09:39
== END 2022-04-28 10:25 | disposition home or self-care (01) ==
LOC: EDUNIT# 09:03 → ER FS 09:05
DX: U07.1 COVID-19 (principal)
CPT/HCPCS: 71045; 87636

== ENCOUNTER 2022-11-02 09:46 | Outpatient (RCR) | payer MEDICARE, OTHER | END 2022-11-20 | disposition home or self-care (01) | LOC: ONC 09:46 | PROVIDERS: ATTEND Radiology Radiation Oncology | DX: Z45.2 Encounter for adjustment and management of vascular access device (principal); C61 Malignant neoplasm of prostate | CPT/HCPCS: 36415; 84153 ==

== ENCOUNTER 2023-03-26 10:56 | Outpatient (RCR) | payer MEDICARE ==
[~2023-03-26 10:56] MED LIST changes: -LOSA100T57; +LOSA100T58
== END 2023-04-19 | disposition home or self-care (01) ==
LOC: ONC 10:56
PROVIDERS: ATTEND Radiology Radiation Oncology
DX: C61 Malignant neoplasm of prostate (principal)
CPT/HCPCS: 36415; 84153